=== PATIENT | female | born 1940 | race Caucasian/White ===

== ENCOUNTER → 2019-06-14 13:13 | Outpatient (BNVA) | payer MEDICARE, SELFPAY | PROVIDERS: Family Provider Nurse Practitioner Family; PCP Nurse Practitioner Family; Visit Provider Anesthesiology | DX: M54.41 Lumbago with sciatica, right side (principal); M54.42 Lumbago with sciatica, left side; M25.551 Pain in right hip; M25.561 Pain in right knee; Z79.891 Long term (current) use of opiate analgesic | CPT/HCPCS: 99214 ==

== ENCOUNTER → 2019-06-25 12:26 | Outpatient (BNVA) | payer MEDICARE, SELFPAY | PROVIDERS: Family Provider Nurse Practitioner Family; PCP Nurse Practitioner Family; Visit Provider Nurse Practitioner Family | DX: E03.9 Hypothyroidism, unspecified (principal); Z79.899 Other long term (current) drug therapy; E83.42 Hypomagnesemia; M54.41 Lumbago with sciatica, right side; M54.42 Lumbago with sciatica, left side; E78.2 Mixed hyperlipidemia; F41.9 Anxiety disorder, unspecified; I10 Essential (primary) hypertension; K21.9 Gastro-esophageal reflux disease without esophagitis; M79.604 Pain in right leg; J06.9 Acute upper respiratory infection, unspecified | CPT/HCPCS: 80053; 80061; 81001; 82306; 83036; 83735; 84443; 85025 ==

== ENCOUNTER 2019-06-28 13:29 | Outpatient (CLI) | payer MEDICARE, SELFPAY ==
--- NOTE | 2019-06-28 13:40 | XR_ITS ---
WS: [id number] XR lumbar spine 6V w f/e [id number] REASON FOR EXAM: back pain with right side sciatica FINDINGS: The disc spaces and vertebral bodies are normal. Normal flexion-extension views. Heavy arteriosclerotic changes of the aorta and iliac arteries. 5 functional lumbar vertebra No evidence of spondylolysis or spondylolisthesis. The lumbosacral angle was normal. Decreased bone density suggesting osteopenia.. XR/XR lumbar spine 6V w f/e 91929 IMPRESSION: Arteriosclerotic changes Osteopenia
--- NOTE | 2019-06-28 13:40 | XR_ITS ---
WS: [id number] XR knee RT 3V* [id number] REASON FOR EXAM: right knee pain FINDINGS: Loss of the lateral meniscal space with marked eburnation identified. The patella shows degenerated changes in its articulation with the femur. There is spurring off the p atella. There is patella tibial space is normal. There is spurring off the tibial plateau. XR/XR knee RT 3V* [id number] IMPRESSION: Advanced degenerative arthritis of the right knee.
== END 2019-06-28 13:30 | disposition home or self-care (01) ==
LOC: RAD 13:36
PROVIDERS: Family Provider Nurse Practitioner Family; PCP Nurse Practitioner Family; Visit Provider Nurse Practitioner Family
DX: M25.561 Pain in right knee (principal); M54.42 Lumbago with sciatica, left side; M54.41 Lumbago with sciatica, right side; M85.88 Other specified disorders of bone density and structure, other site; M17.11 Unilateral primary osteoarthritis, right knee
CPT/HCPCS: 72114; 73562

== ENCOUNTER → 2019-07-15 15:21 | Outpatient (BNVA) | payer MEDICARE, SELFPAY | PROVIDERS: Family Provider Nurse Practitioner Family; PCP Nurse Practitioner Family; Visit Provider Nurse Practitioner Family | DX: S63.8X2A Sprain of other part of left wrist and hand, initial encounter (principal); S86.911A Strain of unspecified muscle(s) and tendon(s) at lower leg level, right leg, initial encounter; S76.911A Strain of unspecified muscles, fascia and tendons at thigh level, right thigh, initial encounter; X58.XXXA Exposure to other specified factors, initial encounter | CPT/HCPCS: 73110; 73130; 73552; 73560; 73562 ==

== ENCOUNTER → 2019-07-18 10:26 | Outpatient (BNVA) | payer MEDICARE, SELFPAY | PROVIDERS: Family Provider Nurse Practitioner Family; PCP Nurse Practitioner Family; Visit Provider Urology | DX: N39.0 Urinary tract infection, site not specified (principal) | CPT/HCPCS: 81001 ==

== ENCOUNTER → 2019-08-06 12:20 | Outpatient (BNVA) | payer MEDICARE, SELFPAY | PROVIDERS: Family Provider Nurse Practitioner Family; PCP Nurse Practitioner Family; Visit Provider Anesthesiology | DX: Z76.89 Persons encountering health services in other specified circumstances (principal) ==

== ENCOUNTER 2019-09-02 11:14 | Outpatient (CLI) | payer MEDICARE, SELFPAY ==
--- NOTE | 2019-09-02 12:00 | CT_ITS ---
WS: [id number] CT LUMBAR SPINE TECHNIQUE: Noncontrast CT of the lumbar spine with coronal and sagittal reformatted images. CLINICAL INFORMATION: lumbar disc disease COMPARISON: None. DLP: 2063.[address] scans at [facility] use at least one of these dose optimization techniques: automat ed exposure control; mA and/or kV adjustment per patient size (includes targeted exams where dose is matched to clinical indication); or iterative reconstruction. FINDINGS: Minimal lumbar curve convex left. No acute appearing compression fractures. Disc bulging worse L4-5. No high-grade central canal stenosis. L1-L2: Normal. L2-L3: Mild annular bulging. Mild facet arthropathy. Spinal canal and foramen are patent. L3-L4: No significant disc bulging. Moderate facet arthropathy. Spinal canal and foramen are patent. L4-L5: Mild annular bulging. Moderate facet arthropathy. Spinal canal and foramen are patent L5-S1: Mild disc bulging with a tiny central disc osteophyte protrusion. Slight effacement of the nino tral thecal sac. Spinal canal and foramen are patent. Moderate facet arthropathy. Visualized pelvic bony structures: Normal. Paravertebral soft tissues: Normal. CT/CT lumbar spine wo con* [id number] IMPRESSION: 1. Minimal lumbar curve convex left. No acute compression fractures. 2. Mild annular bulging L4-5 with slight effacement of ventral thecal sac. Spi nal canal and foramen are patent. 3. Moderate facet arthropathy L4-L5 and L5-S1. 4. Tiny central disc protrusion L5-S1 without significant spinal canal or fora barbara narrowing.
== END 2019-09-02 11:15 | disposition home or self-care (01) ==
LOC: RADWPI 11:19
PROVIDERS: Family Provider Nurse Practitioner Family; PCP Nurse Practitioner Family; Visit Provider Family Medicine
DX: M51.9 Unspecified thoracic, thoracolumbar and lumbosacral intervertebral disc disorder (principal); M47.817 Spondylosis without myelopathy or radiculopathy, lumbosacral region; M51.17 Intervertebral disc disorders with radiculopathy, lumbosacral region
CPT/HCPCS: 72131

== ENCOUNTER 2019-09-24 11:45 | Outpatient (CLI) | payer MEDICARE, SELFPAY ==
--- NOTE | 2019-09-24 11:30 | XR_ITS ---
WS: [id number] LATERAL LUMBAR SPINE: 3 view. Lateral radiographs are performed in upright neutral, flexion and extension to the patient's toleranc e. HISTORY: Low back pain COMPARISON: 06/28/2019 Marked osteopenia. Posterior lumbar alignment is normal. With flexion and extension no instability is evident. Disc spaces are mildly narrowed throughout. No fracture. Extensive atherosclerosis abdominal aorta. XR/XR lumbar spine f/e only [id number] IMPRESSION: No lumbar spine instability.
== END 2019-09-24 11:46 | disposition home or self-care (01) ==
LOC: RADWPI 11:48
PROVIDERS: PCP Nurse Practitioner Family; Visit Provider Licensed Practical Nurse
DX: M54.5 Low back pain (principal)
CPT/HCPCS: 72120

== ENCOUNTER 2020-09-14 13:02 | Outpatient (CLI) | payer MEDICARE, SELFPAY ==
--- NOTE | 2020-09-14 13:16 | XR_ITS ---
WS: [id number] THORACIC SPINE TECHNIQUE: 3 views of the thoracic spine CLINICAL INFORMATION: W19.XXXA - Unspecified fall, initial encounter COMPARISON: None. FINDINGS: Mild thoracolumbar curve. Aortic calcification. Moderate thoracic kyphosis with ankylosis. Aortic ally cification. No acute appearing thoracic compression fractures. Ankylosis thoracic spine. Osteopenia. XR/XR thoracic spine 3V* [id number] IMPRESSION: 1. Moderate thoracic kyphosis with ankylosis. 2. No acute appearing thoracic compression fractures.
--- NOTE | 2020-09-14 13:16 | XR_ITS ---
WS: [id number] RIBS BILATERAL TECHNIQUE: 4 views bilateral ribs CLINICAL INFORMATION: W19.XXXA - Unspecified fall, initial encounter COMPARISON: July 01, 2017 FINDINGS: Patient is rotated. Moderate chronic emphysematous changes. Aortic calcification. Cardiomegaly. Basal atelectasis. Cholecystectomy clips. Mild thoracolumbar curve. Osteopenia. Chronic appearing marcy ateral rib fractures with callus formation. XR/XR ribs BI 3V* [id number] IMPRESSION: 1. Moderate chronic erythematous changes. Bibasilar atelectasis. 2. No focal pneumonia. 3. Cardiomegaly. 4. Chronic appearing bilateral rib fractures with callus formation.
--- NOTE | 2020-09-14 13:16 | XR_ITS ---
WS: [id number] LUMBAR SPINE TECHNIQUE: 3 views of the lumbar spine CLINICAL INFORMATION: W19.XXXA - Unspecified fall, initial encounter COMPARISON: None. FINDINGS: Osteopenia. Five [id number] lumbar vertebral bodies. Mild compression superior endplate L2 is new from September 06. Moderate facet arthropathy L5-S1. Aortic calcification. Vascular calcification. Pelvic phlebolit hs. XR/XR lumbar spine 2-3V* [id number] IMPRESSION: 1. Osteopenia. Mild lumbar curve. 2. Mild compression superior endplate L2 with loss of approximately 20% verteb ral body height. This is new since September 24, 2019
--- NOTE | 2020-09-14 13:16 | XR_ITS ---
WS: [id number] SACRUM TECHNIQUE: 3 views of the sacrum and coccyx CLINICAL INFORMATION: W19.XXXA - Unspecified fall, initial encounter COMPARISON: None. FINDINGS: Osteopenia. Pelvic phleboliths. Vascular calcification. Aortic calcification. Normal sacrococcygeal j unction. XR/XR coccyx 2V [id number] IMPRESSION: Osteopenia with normal sacrococcygeal junction. No visualized fractures.
== END 2020-09-14 13:03 | disposition home or self-care (01) ==
PROVIDERS: PCP Nurse Practitioner Family; Visit Provider Nurse Practitioner Family
DX: M53.3 Sacrococcygeal disorders, not elsewhere classified (principal); R07.81 Pleurodynia; M54.6 Pain in thoracic spine; M54.5 Low back pain; M40.294 Other kyphosis, thoracic region; M43.24 Fusion of spine, thoracic region; J98.11 Atelectasis; I51.7 Cardiomegaly; S22.43XA Multiple fractures of ribs, bilateral, initial encounter for closed fracture; S32.029A Unspecified fracture of second lumbar vertebra, initial encounter for closed fracture; W19.XXXA Unspecified fall, initial encounter; M85.88 Other specified disorders of bone density and structure, other site
CPT/HCPCS: 71110; 72072; 72100; 72220

== ENCOUNTER → 2020-12-23 11:42 | Outpatient (BNVA) | payer MEDICARE, SELFPAY | PROVIDERS: PCP Nurse Practitioner Family; Visit Provider Nurse Practitioner Family | DX: R32 Unspecified urinary incontinence (principal); L03.115 Cellulitis of right lower limb; I50.32 Chronic diastolic (congestive) heart failure | CPT/HCPCS: 80048; 81003; 83880 ==

== ENCOUNTER → 2021-02-18 11:51 | Outpatient (BNVA) | payer MEDICARE, SELFPAY | PROVIDERS: PCP Nurse Practitioner Family; Visit Provider Nurse Practitioner Family | DX: L03.115 Cellulitis of right lower limb (principal); I10 Essential (primary) hypertension | CPT/HCPCS: 81003 ==

== ENCOUNTER → 2021-02-24 11:07 | Outpatient (BNVA) | payer MEDICARE, SELFPAY | PROVIDERS: PCP Nurse Practitioner Family; Visit Provider Nurse Practitioner Family | DX: F41.9 Anxiety disorder, unspecified (principal); R60.0 Localized edema; E03.9 Hypothyroidism, unspecified; K21.9 Gastro-esophageal reflux disease without esophagitis; I10 Essential (primary) hypertension; L03.115 Cellulitis of right lower limb | CPT/HCPCS: 83880 ==

== ENCOUNTER 2021-03-09 13:03 | Outpatient (CLI) | payer MEDICARE, SELFPAY | END 2021-03-09 13:04 | disposition home or self-care (01) | LOC: WOUND 13:05 | PROVIDERS: PCP Nurse Practitioner Family; Visit Provider Thoracic Surgery (Cardiothoracic Vascular Surgery) | DX: L03.116 Cellulitis of left lower limb (principal); L03.115 Cellulitis of right lower limb; I87.2 Venous insufficiency (chronic) (peripheral) | CPT/HCPCS: G0463 ==

== ENCOUNTER 2021-04-23 14:36 | Outpatient (CLI) | payer MEDICARE, SELFPAY ==
--- NOTE | 2021-04-23 14:43 | USCV_ITS ---
Glenda Ybarra Age: 80 Gender: F : 1940 Exam Date: 04/23/2021 14:57 Ordering Phys: Tono Kelley MD ([place]) [email or web address] [place] Technologist: MANJIT [place] [facility] [place]: HISTORY: PROCEDURES: FINDINGS: DUE TO FRAGILE STATE HAVE CONCERNS FOR ABLATION CONCLUSIONS 1 no evidence of DVT in the above-mentioned identifiable veins. 2. On the right side, significant reflux of greater than 500 ms were noted throughout the greater saphenous and small saphenous vein segments, sparing the saphenofemoral junction. The venous segments were of good caliber and a greater than 1 cm deep from the surface. 3. On the left side significant venous reflux of greater than 500 ms were noted throughout the greater saphenous vein segments including the saphenofemoral junction. No significant reflux was noted at the small saphenous vein segments. The greater saphenous vein segments were of good caliber and greater than 1 cm deep from the surface, except the greater saphenous vein segment just distal to the saphenofemoral junction. No similar previous studies are available for comparison. Clinical correlation is recommended, while deciding on the ablation Dr Coty Snyder MD [facility] (Electronically Signed) Final Date: 01 May 2021 16:17 S
== END 2021-04-23 14:37 | disposition home or self-care (01) ==
LOC: RAD 14:40
PROVIDERS: PCP Nurse Practitioner Family; Visit Provider Thoracic Surgery (Cardiothoracic Vascular Surgery)
DX: I87.2 Venous insufficiency (chronic) (peripheral) (principal)
CPT/HCPCS: 93970

== ENCOUNTER → 2021-07-22 14:51 | Outpatient (BNVA) | payer MEDICARE, SELFPAY | PROVIDERS: PCP Nurse Practitioner Family; Visit Provider Internal Medicine | DX: I11.0 Hypertensive heart disease with heart failure (principal); I50.32 Chronic diastolic (congestive) heart failure; Z01.818 Encounter for other preprocedural examination; E78.2 Mixed hyperlipidemia | CPT/HCPCS: 99214 ==

== ENCOUNTER → 2021-10-12 13:30 | Outpatient (BNVA) | payer MEDICARE, SELFPAY | PROVIDERS: PCP Nurse Practitioner Family; Visit Provider Nurse Practitioner | DX: R05.9 Cough, unspecified (principal); J18.9 Pneumonia, unspecified organism | CPT/HCPCS: 85025 ==

== ENCOUNTER → 2021-11-01 10:47 | Outpatient (BNVA) | payer MEDICARE, SELFPAY | PROVIDERS: PCP Nurse Practitioner Family; Visit Provider Nurse Practitioner Family | DX: N39.0 Urinary tract infection, site not specified (principal); R32 Unspecified urinary incontinence | CPT/HCPCS: 81003; 99213 ==

== ENCOUNTER 2022-02-17 15:11 | Emergency (ER) | payer MEDICARE, SELFPAY ==
--- NOTE | 2022-02-17 | XRR_ITS ---
[facility] Final Radiology Report Call: [phone] Name: ERLIN MIXON Age: 81Years F Date: 02/17/2022 SSN: -- : 1940 Study: XR CHEST 1 VIEW Requesting Physician: SUZETTE GILLIAM Images: 1 Provided Clinical History: dyspnea PROCEDURE INFORMATION: Exam: XR Chest Exam date and time: 02/17/2022 4:18 PM Age: 81 years old Clinical indication: Dyspnea TECHNIQUE: Imaging protocol: Radiologic exam of the chest. Views: 1 view. COMPARISON: CR XR ribs BI 3V* [id number] 09/14/2020 1:56 PM FINDINGS: Lungs: Left perihilar and bibasilar opacities may reflect atelectasis, edema or pneumonitis. Pleural spaces: There are bilateral pleural effusions. Heart/Mediastinum: Heart size within upper limits of normal. Bones/joints: Unremarkable. IMPRESSION: 1. Left perihilar and bibasilar opacities may reflect atelectasis, edema or pneumonitis. 2. Bilateral pleural effusions. Thank you for allowing us to participate in the care of your patient. Dictated and Authenticated by: Janet Rouse MD 02/17/2022 5:26 PM Central Time ([place] & [place]) [facility]ITALBuffy
[2022-02-17 15:22] VITALS: BP 152/77; PULSE 72; RESP 22; TEMP 36.5; O2SAT 93; BMI 18.8
--- NOTE | 2022-02-17 15:54 | ED_ITS ---
HPI - General Adult General: Chief complaint: Shortness of Breath/Dyspnea Stated complaint: sob Time Seen by Provider: 02/17/22 15:34 History of Present Illness: Patient is a 81-year-old female with a history of chronic left breast lesion presenting to the emergency room for concerns of dyspnea and chest pain. Patient tells me that for the last month she has had an ongoing cough and she was diagnosed with pneumonia twice. Patient completed 2 course of antibiotics including z-paks and augmentin and continues to have persistent cough and dyspnea. Over the last week, patient also reports chest pain. Patient denies any fever/chills, runny nose, sore throat, nasal congestion, abdominal pain, diarrhea, melena hematochezia or complaints. Of note, patient has a chronic left breast lesion that she first noticed over 10 years ago. Patient has never seen a provider for this breast lesion. Onset:1 month ago Duration:1 month Location:home Severity:moderate Associated symptoms: Reports dyspnea; Deny chest pain, nausea, palpitations or vomiting Review of Systems Const: Denies: fever(s) or chills Eyes: Denies: change in vision ENMT: Denies: mouth pain Card: Denies: chest pain or palpitations Resp: Reports: dyspnea and non-productive cough GI: Denies: abdominal pain, nausea, vomiting or diarrhea : Denies: dysuria Musc: Denies: extremity pain Skin/Breast: Reports: other (+chronic L breast ulcerated wound) Neuro: Denies: weakness in extremities Psych: Reports: other (Normal mood) Skyler/Lymph: Denies: easy bruising PFSH ED PFSH: Medical History Acute pain of right hip Anemia Anxiety Arthralgia of knee, right Bilateral low back pain with bilateral sciatica Bilateral lower extremity edema Cellulitis of right lower leg Chronic kidney disease (CKD) Congestive heart failure with left ventricular diastolic dysfunction Encounter for long-term use of opiate analgesic Essential hypertension, benign Fall at home Fall in home Generalized weakness GERD (gastroesophageal reflux disease) Hypomagnesemia Hypothyroid 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 radiculopathy due to degenerative joint disease of spine Medication management Mixed hyperlipidemia Muscle spasm Osteoarthritis of right knee Recurrent UTI Urinary incontinence Venous insufficiency of both lower extremities Vitamin D deficiency Surgical History History of laparoscopic appendectomy Hx of abdominal hysterectomy Hx of cholecystectomy Family History Mother CAD (coronary artery disease) Father Stroke Brother CAD (coronary artery disease) Cancer Sister CAD (coronary artery disease) Cancer Social History Smoking and tobacco status: never smoked Alcohol intake: never Household members: spouse Marital status: Current occupational status: retired History of recent travel: No Physical Exam Const: COMMON NORMALS: alert HENMT: COMMON NORMALS: atraumatic HEAD & SCALP: atraumatic MOUTH: moist mucous membranes not abnormal Eye: COMMON NORMALS: EOMs intact bilaterally and conjunctivae normal CONJUNCTIVA: Yes conjunctivae normal Neck/C-Spine: COMMON NORMALS: full ROM and supple Chest: OTHER: +L breast 5cm ulcerated granulating lesion Resp: COMMON NORMALS: normal respiratory effort and clear to auscultation bilaterally AUSCULTATION: clear to auscultation bilaterally OTHER: + Mild decreased breath sounds bilaterally in the bases Cardio: COMMON NORMALS: regular rate RATE: regular rate GI: COMMON NORMALS: Soft to palpation and non-tender PALPATION: Yes Soft to palpation OTHER: No focal TTP. NO guarding rebound, guarding, rigidity. No CVA tenderness to percussion. Neg Dahl/Neg McBurney's point tenderness, no suprabupic tenderness to palpation. Extremity: COMMON NORMALS: full ROM Neuro: SENSORIUM/ORIENTATION: Yes alert MOTOR EXAM: No Abnormal motor strength present and Other motor observations present (no focal motor deficits) Psych: COMMON NORMALS: speech normal SPEECH: Yes normal speech MOOD & AFFECT: Yes euthymic mood Skin: NARRATIVE SKIN EXAM: +L breast 5cm ulcerated granulating lesion Course Vital Signs: Vital signs: Vital Signs Temperature 97.7 F 02/17/22 15:22 Pulse Rate 73 02/17/22 17:00 Respiratory Rate 15 02/17/22 17:00 Blood Pressure 157/50 02/17/22 17:00 Pulse Oximetry 91 02/17/22 17:00 Oxygen Delivery Me thod 02/17/22 17:00 [facility] - General Adult Medical Decision Making 81-year-old female with a history of chronic left breast lesion presenting to emergency room with exertional dyspnea, cough, and chest pain for the last month now worsening. On exam, patient is noted have decreased breath sounds bilaterally in the bases. On skin exam, patient is noted to have ulcerated granulating lesion of the left breast. Lab work-up showed white count 6.4. Troponin x2 with delta less than 5. Sodium 131. Potassium 3.3. EKG is nonischemic. Given concerns for possible history of breast lesion, CTA was ordered. Patient is negative for PE. Patient was found to have multiple sclerotic bone lesions visible as well as metastatic changes to the lungs with bilateral pleural effusion. Discussed these findings extensively with patient. Patient is a copy of the CT report and is instructed to follow up with specialists below. At the present time, given normal troponin and EKG, do not suspect patient's symptoms and presentations is likely unstable angina or ACS today. It is likely the metastatic nature of her disease is causing patient to cough, shortness of breath and chest pain. I have given patient follow up with our director case to be seen by our outpatient oncology for new diagnosis of metastatic breast cancer. Patient aware of a call from our director case to schedule for appointment(s) and verbalizes understanding of the importance of following up. I have given patient follow up with our director case to be seen by our outpatient pulmonology for management of . Patient aware of a call from our director case to schedule for appointment(s) and verbalizes understanding of the im portance of following up. I have given patient follow up with our director case to be seen by our o utpatient with a new PCP per request of patient. Patient aware of a call from our director case to schedule for appointment(s) and verbalizes understanding of the importance of following up. Rx lasix for pleural effusion b/l Disposition: Discharge. Patient counseled regarding diagnostic impression, treatment plan. Patient given ED strict return precautions to return for continuation, worsening, or development of new symptoms. Instructed to f/u w/ PCP/Oncology/Pulmology regarding symptoms today. Patient verbalized understanding. Lab Data : 02/17/22 15:59 02/17/22 15:59 Radiology Impressions Chest CTA 02/17/22 16:17 IMPRESSION: 1. Large left anterior breast mass, with associated thickening and nodularity in the adjacent skin and superficial fat of the left lateral chest wall. Correlate with clinical history, with tissue diagnosis if not already performed. 2. Mediastinal and bilateral hilar adenopathy, nonspecific but likely metastatic. 3. Numerous rounded parenchymal nodules, as above, consistent with metastatic disease. 4. Patchy and nodular density in the left upper lobe which likely reflects metastatic disease and associated atelectasis. Pneumonitis is not excluded. 5. Sclerotic lesion right lateral 6th rib, suspicious for metastatic focus. 6. Moderate to large bilateral pleural effusions, with compressive atelectasis in the dependent lungs bilaterally. 7. Cirrhotic appearance of the liver. 8. Splenomegaly. Laboratory Results WBC 6.4 10^3/uL (4.0-10.0) 02/17/22 15:59 RBC 4.63 10^6/uL (4.1-5.3) 02/17/22 15:59 Hgb 14.8 g/dL (11.5-15.3) 02/17/22 15:59 Hct 42.6 % (37.0-47.0) 02/17/22 15:59 MCV 92.0 fl (81-99) 02/17/22 15:59 MCH 32.0 pg (28.0-34.0) 02/17/22 15:59 MCHC 34.7 g/dL (30.0-36.0) 02/17/22 15:59 RDW 13.6 % (12.1-15.1) 02/17/22 15:59 Plt Count 138 10^3/cmm (130-400) 02/17/22 15:59 MPV 9.8 fL (7.4-10.4) 02/17/22 15:59 Neut % (Auto) 75.6 % 02/17/22 15:59 Lymph % (Auto) 12.8 % 02/17/22 15:59 [place] % (Auto) 9.2 % 02/17/22 15:59 Eos % (Auto) 1.6 % 02/17/22 15:59 Baso % (Auto) 0.5 % 02/17/22 15:59 Neut # (Auto) 4.86 10^3/uL (1.8-7.7) 02/17/22 15:59 Lymph # (Auto) 0.8 10^3/uL (0.8-4.8) 02/17/22 15:59 [place] # (Auto) 0.6 10^3/uL (0.2-0.9) 02/17/22 15:59 Eos # (Auto) 0.1 10^3/uL (0.0-0.8) 02/17/22 15:59 Baso # (Auto) 0.0 10^3/uL (0.0-0.1) 02/17/22 15:59 Nucleated RBC % (auto) 0 % 02/17/22 15:59 Nucleated RBCs # 0.0 /100WBC 02/17/22 15:59 Sodium 131 mmol/L (136-145) L 02/17/22 15:59 Potassium 3.3 mmol/L (3.5-5.1) L 02/17/22 15:59 Chloride 92 mmol/L (98-107) L 02/17/22 15:59 Carbon Dioxide 28 mmol/L (22-29) 02/17/22 15:59 Anion Gap 14.3 (5-19) 02/17/22 15:59 BUN 11 mg/dL (8-23) 02/17/22 15:59 Creatinine 0.5 mg/dL (0.5-0.9) 02/17/22 15:59 GFR Calculation Not Reportable 02/17/22 15:59 Glucose 104 mg/dL (65-115) 02/17/22 15:59 Calculated Osmolality 272 mOsm/kg (285-295) L 02/17/22 15:59 Calcium 9.7 mg/dL (8.5-10.5) 02/17/22 15:59 Troponin T Baseline 17 ng/L (0-10) H 02/17/22 15:59 Troponin T 120 Minute 18.04 ng/L (0-10) H 02/17/22 17:53 Delta Troponin T 1.04 ABS# (0-10) 02/17/22 17:53 C-Reactive Protein 3.5 mg/L (0.0-4.9) 02/17/22 15:59 NT-Pro-B Natriuret Pep 648 pg/mL (0-450) H 02/17/22 15:59 Procalcitonin 0.03 ng/mL (0-0.5) 02/17/22 15:59 Imaging Data Other Imaging: Radiologist's impression: [facility] [address] [place] [address] CT Scan Report Signed Patient: Glenda Ybarra Unit #: [id number] : 1940 Age/Sex: 81 / F ADM Date: 02/17/22 Loc: ER Room/Bed: Attending Dr: Ordering Provider/Ordering MD: Sunni Perez MD Date of Service: 02/17/22 Procedure(s): CT angio chest PE protcl [id number] Accession Number(s): [id number] Report Number: [id number] PROCEDURE INFORMATION: Exam: CTA Chest With Contrast Exam date and time: 02/17/2022 5:30 PM Age: 81 years old Clinical indication: Abnormal findings; Abnormal radiologic exam of lung or chest; Additional info: L sided chest lesion TECHNIQUE: Imaging protocol: Computed tomographic angiography of the chest with contrast. 3D rendering (Not supervised by radiologist): MIP and/or 3D reconstructed images were created by the technologist. Radiation optimization: All CT scans at this facility use at least one of these dose optimization techniques: automated exposure control; mA and/or kV adjustment per patient size (includes targeted exams where dose is matched to clinical indication); or iterative reconstruction. Contrast material: OMNIPAQUE 350; Contrast volume: 95 ml; Contrast route: INTRAVENOUS (IV);? COMPARISON: CR XR chest 2V* [id number] 02/17/2022 4:18 PM RADIATION DOSE METRICS: Total DLP (mGy-cm): 323.66 FINDINGS: Pulmonary arteries: No pulmonary emboli.? Mediastinal lymphadenopathy exhibits extrinsic compression on multiple pulmonary arterial branches.? Aorta: Unremarkable. No aortic aneurysm. No aortic dissection. Lungs: There is compressive atelectasis in the dependent lungs bilaterally. Multiple parenchymal nodules are seen in both lungs, largest rounded nodule in the right upper lobe measuring 12 mm, consistent with metastatic disease. There is a patchy and nodular density in the left upper lobe which likely reflects metastatic disease and associated atelectasis. Pneumonitis is not excluded. Pleural spaces: Moderate to large bilateral pleural effusions are noted. Heart:? Coronary arterial calcifications. No significant pericardial effusion.? There is borderline cardiomegaly. Lymph nodes: Mediastinal and bilateral hilar adenopathy is noted. Liver: Cirrhotic appearance of the liver. Spleen: Splenomegaly. Bones/joints: There is a sclerotic appearance of the right lateral 6th rib which is suspicious for osseous metastatic lesion. No other suspected bone metastases are identified. Soft tissues: There is an irregularly lobular left anterior chest wall lesion which measures approximately 9.2 x 4.4 cm in the axial plane, is extending along the adjacent skin, causing skin thickening and nodularity, the lesion inseparable from the anterior chest wall musculature. Presumed breast neoplasm. Correlate with clinical history, with tissue diagnosis if not already performed. Nodularity is seen in the skin and superficial fat of the left lateral and posterolateral chest wall, as well. CT/CT angio chest PE protcl [id number] IMPRESSION: 1. Large left anterior breast mass, with associated thickening and nodularity in the adjacent skin and superficial fat of the left lateral chest wall. Correlate with clinical history, with tissue diagnosis if not already performed. 2. Mediastinal and bilateral hilar adenopathy, nonspecific but likely metastatic. 3. Numerous rounded parenchymal nodules, as above, consistent with metastatic disease. 4. Patchy and nodular density in the left upper lobe which likely reflects metastatic disease and associated atelectasis. Pneumonitis is not excluded. 5. Sclerotic lesion right lateral 6th rib, suspicious for metastatic focus. 6. Moderate to large bilateral pleural effusions, with compressive atelectasis in the dependent lungs bilaterally. 7. Cirrhotic appearance of the liver. 8. Splenomegaly. ? Dictated By: Janet Rouse MD Signed By: Janet Rouse MD Signed Date/Time: 02/17/221826 DD/ 29 Discharge Plan Discharge Patient Disposition: Home Clinical Impression: Dyspnea, Metastatic cancer, Pleural effusion Condition: Stable Prescriptions: New Lasix 20 mg tablet 20 mg PO DAILY 20 Days Qty: 20 0RF No Action (DME) light weight wheelchair See Rx Instructions .Route .MEDSUPPLY Qty: 1 0RF Rx Instructions: As directed amoxicillin-pot clavulanate 875-125 mg tablet 1 tab PO BID 7 Days Qty: 14 0RF Rx Instructions: RX FILLED 02/14/22 7D/S multivitamin Tablet 1 tab PO QAM Senna-S 8.6-50 mg Tablet 1 tab PO BID Tylenol Ex Str Rapid Release 500 mg Tablet 500 mg PO DAILY@02 Vitamin C 500 mg Tablet 500 mg PO DAILY PRN (Reason: UNKNOWN) torsemide 20 mg tablet 20 mg PO QAM hydrocodone-acetaminophen 10-325 mg tablet 0.5 tab PO Q6H omeprazole 40 mg capsule,delayed release(DR/EC) 40 mg PO QAM alprazolam 0.5 mg tablet 0.25 mg PO BID potassium chloride 20 mEq tablet,ER particles/crystals 20 meq PO QAM levothyroxine 50 mcg tablet 50 mcg PO QAM simvastatin 20 mg tablet 20 mg PO BEDTIME triamterene-hydrochlorothiazid 37.5-25 mg tablet 1 tab PO BEDTIME Mag 64 64 mg tablet,delayed release (DR/EC) 64 mg PO BID Discharge Orders: Discharge ED (Routine); Ordered 02/17/22 Ordered By: Sunni Perez Referrals: NOT ON FILE,DOCTOR [Primary Care Provider] - Discharge Diet: Advance as tolerated Discharge Activity: Increase activity as tolerated Patient Instructions: Chest Pain (ED), Dyspnea (ED) Activity Restrictions/Additional Instructions: Come back to the emergency room if your chest pain worsens, have any fever or chills, worsening shortness of breath, worsening exertional lightheadedness, or any new or concerning complaints. Our director case will have you follow-up with our car installations supervisor, primary care provider and oncologist in the next few days. You would be expected to have a phone call with our director case who will put you on the schedule. You can expect a call from us in the next 2-3 days. If you don't hear from us, call us back in the emergency room at [phone]. Here's a copy of your CT report: [address] [place] [address] CT Scan Report Signed Patient: Glenda Ybarra Unit #: [id number] : 1940 Age/Sex: 81 / F ADM Date: 02/17/22 Loc: ER Room/Bed: Attending Dr: Ordering Provider/Ordering MD: Sunni Perez MD Date of Service: 02/17/22 Procedure(s): CT angio chest PE protcl [id number] Accession Number(s): [id number] Report Number: [id number] PROCEDURE INFORMATION: Exam: CTA Chest With Contrast Exam date and time: 02/17/2022 5:30 PM Age: 81 years old Clinical indication: Abnormal findings; Abnormal radiologic exam of lung or chest; Additional info: L sided chest lesion TECHNIQUE: Imaging protocol: Computed tomographic angiography of the chest with contrast. 3D rendering (Not supervised by radiologist): MIP and/or 3D reconstructed images were created by the technologist. Radiation optimization: All CT scans at this facility use at least one of these dose optimization techniques: automated exposure control; mA and/or kV adjustment per patient size (includes targeted exams where dose is matched to clinical indication); or iterative reconstruction. Contrast material: OMNIPAQUE 350; Contrast volume: 95 ml; Contrast route: INTRAVENOUS (IV);? COMPARISON: CR XR chest 2V* [id number] 02/17/2022 4:18 PM RADIATION DOSE METRICS: Total DLP (mGy-cm): 323.66 FINDINGS: Pulmonary arteries: No pulmonary emboli.? Mediastinal lymphadenopathy exhibits extrinsic compression on multiple pulmonary arterial branches.? Aorta: Unremarkable. No aortic aneurysm. No aortic dissection. Lungs: There is compressive atelectasis in the dependent lungs bilaterally. Multiple parenchymal nodules are seen in both lungs, largest rounded nodule in the right upper lobe measuring 12 mm, consistent with metastatic disease. There is a patchy and nodular density in the left upper lobe which likely reflects metastatic disease and associated atelectasis. Pneumonitis is not excluded. Pleural spaces: Moderate to large bilateral pleural effusions are noted. Heart:? Coronary arterial calcifications. No significant pericardial effusion.? There is borderline cardiomegaly. Lymph nodes: Mediastinal and bilateral hilar adenopathy is noted. Liver: Cirrhotic appearance of the liver. Spleen: Splenomegaly. Bones/joints: There is a sclerotic appearance of the right lateral 6th rib which is suspicious for osseous metastatic lesion. No other suspected bone metastases are identified. Soft tissues: There is an irregularly lobular left anterior chest wall lesion which measures approximately 9.2 x 4.4 cm in the axial plane, is extending along the adjacent skin, causing skin thickening and nodularity, the lesion inseparable from the anterior chest wall musculature. Presumed breast neoplasm. Correlate with clinical history, with tissue diagnosis if not already performed. Nodularity is seen in the skin and superficial fat of the left lateral and posterolateral chest wall, as well. CT/CT angio chest PE protcl [id number] IMPRESSION: 1. Large left anterior breast mass, with associated thickening and nodularity in the adjacent skin and superficial fat of the left lateral chest wall. Correlate with clinical history, with tissue diagnosis if not already performed. 2. Mediastinal and bilateral hilar adenopathy, nonspecific but likely metastatic. 3. Numerous rounded parenchymal nodules, as above, consistent with metastatic disease. 4. Patchy and nodular density in the left upper lobe which likely reflects metastatic disease and associated atelectasis. Pneumonitis is not excluded. 5. Sclerotic lesion right lateral 6th rib, suspicious for metastatic focus. 6. Moderate to large bilateral pleural effusions, with compressive atelectasis in the dependent lungs bilaterally. 7. Cirrhotic appearance of the liver. 8. Splenomegaly. ? Dictated By: Janet Rouse MD Signed By: Janet Rouse MD Signed Date/Time: 02/17/22 1827 DD/ 1730 Coding Level of Care Code ED Assistant Signal Maintainer for Chg Fwd Exam Comprehensive
[2022-02-17 16:05] VITALS: BP 132/70; PULSE 72; RESP 18; O2SAT 92
--- NOTE | 2022-02-17 16:07 | PC.NURSE ---
Patient has a large abscess to left breast, she has not reported this to her physician, states it has been there a long time, states it drains on its own, states it continues to get better.
[2022-02-17 16:10] LABS: Basophils % 0.5 %; Eosinophils # 0.1 10^3/uL (0.0-0.8); Eosinophils % 1.6 %; Hematocrit 42.6 % (37.0-47.0); Hemoglobin 14.8 g/dL (11.5-15.3); Lymphocytes # 0.8 10^3/uL (0.8-4.8); Lymphocytes % 12.8 %; Mean Corpuscular HGB Conc 34.7 g/dL (30.0-36.0); Mean Platelet Volume 9.8 fL (7.4-10.4); Monocytes # 0.6 10^3/uL (0.2-0.9); Monocytes % 9.2 %; Neutrophils # 4.86 10^3/uL (1.8-7.7); Neutrophils % 75.6 %; Nucleated Red Blood Cells % 0 %; Platelet Count 138 10^3/cmm (130-400); Red Blood Count 4.63 10^6/uL (4.1-5.3); Red Cell Distribution Width 13.6 % (12.1-15.1); White Blood Count 6.4 10^3/uL (4.0-10.0)
--- NOTE | 2022-02-17 16:10 | PC.NURSE ---
Left breast abscess has been there about 12 years and has increased in size in the last two years. Abscess is open and size of left breast.
--- NOTE | 2022-02-17 16:17 | CTR_ITS ---
PROCEDURE INFORMATION: Exam: CTA Chest With Contrast Exam date and time: 02/17/2022 5:30 PM Age: 81 years old Clinical indication: Abnormal findings; Abnormal radiologic exam of lung or chest; Additional info: L sided chest lesion TECHNIQUE: Imaging protocol: Computed tomographic angiography of the chest with contrast. 3D rendering (Not supervised by radiologist): MIP and/or 3D reconstructed images were created by the technologist. Radiation optimization: All CT scans at this facility use at least one of these dose optimization techniques: automated exposure control; mA and/or kV adjustment per patient size (includes targeted exams where dose is matched to clinical indication); or iterative reconstruction. Contrast material: OMNIPAQUE 350; Contrast volume: 95 ml; Contrast route: INTRAVENOUS (IV); COMPARISON: CR XR chest 2V* [id number] 02/17/2022 4:18 PM RADIATION DOSE METRICS: Total DLP (mGy-cm): 323.66 FINDINGS: Pulmonary arteries: No pulmonary emboli. Mediastinal lymphadenopathy exhibits extrinsic compression on multiple pulmonary arterial branches. Aorta: Unremarkable. No aortic aneurysm. No aortic dissection. Lungs: There is compressive atelectasis in the dependent lungs bilaterally. Multiple parenchymal nodules are seen in both lungs, largest rounded nodule in the right upper lobe measuring 12 mm, consistent with metastatic disease. There is a patchy and nodular density in the left upper lobe which likely reflects metastatic disease and associated atelectasis. Pneumonitis is not excluded. Pleural spaces: Moderate to large bilateral pleural effusions are noted. Heart: Coronary arterial calcifications. No significant pericardial effusion. There is borderline cardiomegaly. Lymph nodes: Mediastinal and bilateral hilar adenopathy is noted. Liver: Cirrhotic appearance of the liver. Spleen: Splenomegaly. Bones/joints: There is a sclerotic appearance of the right lateral 6th rib which is suspicious for osseous metastatic lesion. No other suspected bone metastases are identified. Soft tissues: There is an irregularly lobular left anterior chest wall lesion which measures approximately 9.2 x 4.4 cm in the axial plane, is extending along the adjacent skin, causing skin thickening and nodularity, the lesion inseparable from the anterior chest wall musculature. Presumed breast neoplasm. Correlate with clinical history, with tissue diagnosis if not already performed. Nodularity is seen in the skin and superficial fat of the left lateral and posterolateral chest wall, as well. CT/CT angio chest PE protcl [id number] IMPRESSION: 1. Large left anterior breast mass, with associated thickening and nodularity in the adjacent skin and superficial fat of the left lateral chest wall. Correlate with clinical history, with tissue diagnosis if not already performed. 2. Mediastinal and bilateral hilar adenopathy, nonspecific but likely metastatic. 3. Numerous rounded parenchymal nodules, as above, consistent with metastatic disease. 4. Patchy and nodular density in the left upper lobe which likely reflects metastatic disease and associated atelectasis. Pneumonitis is not excluded. 5. Sclerotic lesion right lateral 6th rib, suspicious for metastatic focus. 6. Moderate to large bilateral pleural effusions, with compressive atelectasis in the dependent lungs bilaterally. 7. Cirrhotic appearance of the liver. 8. Splenomegaly.
[2022-02-17 16:26] LABS: Troponin(5th) Baseline 17 ng/L (0-10)
[2022-02-17] MEDS: ipratropium-albuterol 3 mL Neb INHALATION ×3 (16:31→16:40)
[2022-02-17 16:35] VITALS: PULSE 68; RESP 16; O2SAT 92
[2022-02-17 16:37] LABS: NT Pro B Type Natriuretic Pept 648 pg/mL (0-450); Procalcitonin 0.03 ng/mL (0-0.5)
[2022-02-17 16:45] VITALS: PULSE 70
[2022-02-17 16:48] LABS: Blood Urea Nitrogen 11 mg/dL (8-23); C Reactive Protein 3.5 mg/L (0.0-4.9); Calcium 9.7 mg/dL (8.5-10.5); Carbon Dioxide 28 mmol/L (22-29); Chloride 92 mmol/L (98-107); Glucose 104 mg/dL (65-115); Osmolality Calculated 272 mOsm/kg (285-295); Sodium 131 mmol/L (136-145)
[2022-02-17 16:51] LABS: Anion Gap 14.3 (5-19); Potassium 3.3 mmol/L (3.5-5.1)
[2022-02-17 17:00] VITALS: BP 157/50; PULSE 73; RESP 15; O2SAT 91
[2022-02-17] MEDS: iohexol 350 mg/mL 100 mL Btl IV (17:32)
--- NOTE | 2022-02-17 17:35 | ECG_ITS ---
[facility] Test Date: 2022-02-17 Pat Name: Glenda Ybarra Department: Room: Gender: Female Nutrition Services Aide: : 1940 Requested By: Sunni Perez Order Number: [id number] Reading MD: Sonja Thomas M.D. Measurements Intervals Central Rate: 80 P: 43 DE: 156 QRS: 53 QRSD: 93 T: 47 QT: 407 QTc: 469 Interpretive Statements SINUS RHYTHM Compared to ECG 02/17/2022 16:09:10 No significant changes Electronically Signed On 02-17-2022 21:07:01 CDT by Sonja Thomas M.D. [id number]
[2022-02-17 18:44] LABS: Troponin 5 2HR 18.04 ng/L (0-10); Troponin 5 2HR Delta 1.04 ABS# (0-10)
[2022-02-17 19:16] VITALS: BP 131/65; PULSE 85; RESP 16; O2SAT 95
--- NOTE | 2022-02-17 21:35 | ECG_ITS ---
[facility] Test Date: 2022-02-17 Pat Name: Glenda Ybarra Department: Room: Gender: Female Catering Server: : 1940 Requested By: Sunni Perez Order Number: [id number] Neil MD: Sonja Thomas M.D. Measurements Intervals [place] Rate: 70 P: 45 MD: 163 QRS: 58 QRSD: 92 T: 55 QT: 406 QTc: 439 Interpretive Statements SINUS RHYTHM No previous ECG available for comparison Electronically Signed On 02-17-2022 21:07:42 CDT by Sonja Thomas M.D. [email or web address]
--- NOTE | 2022-02-18 10:46 | DCPLANNER ---
Addendum entered by Latonya Wing 05/06/22 14:31: Patient had a follow up appointment scheduled with [facility] - pulmonlogy - patient did attend appointment. Patient had a follow up appointment scheduled at the [facility] - patient did attend appointment. Addendum entered by Latonya Wing 02/23/22 12:24: Patient has a follow up appointment scheduled for February at 12:[address] Casas with [facility]. Clinic will call patient with appointment information. Original Note: qc manager had message to schedule a follow up appointment for patient with pulmonology, primary care and oncology. qc manager sent patients information at the front office at [facility], patients information will be printed and reviewed. Clinic will call patient with appointment information. qc manager cannot refer patient to oncology, due to not having a biopsy completed and no diagnosis. qc manager did refer patient to her primary care, at [facility], patient has a follow up appointment scheduled for Monday, February 21, 2022 at 11:00 with Jaylin Pollack. Clinic will call patient with appointment information.
== END 2022-02-17 19:18 | disposition home or self-care (01) ==
PROVIDERS: Emergency Provider Emergency Medicine
DX: R06.00 Dyspnea, unspecified (principal); J90 Pleural effusion, not elsewhere classified; C50.919 Malignant neoplasm of unspecified site of unspecified female breast; C79.9 Secondary malignant neoplasm of unspecified site; I11.0 Hypertensive heart disease with heart failure; I50.9 Heart failure, unspecified; E78.2 Mixed hyperlipidemia
CPT/HCPCS: 36415; 71045; 71275; 80048; 83880; 84145; 84484; 85025; 86140; 93005; 94640; 99285; Q9967

== ENCOUNTER → 2022-02-21 14:27 | Outpatient (BNVA) | payer MEDICARE, SELFPAY | PROVIDERS: Visit Provider Nurse Practitioner | DX: C79.9 Secondary malignant neoplasm of unspecified site (principal); J90 Pleural effusion, not elsewhere classified; I10 Essential (primary) hypertension | CPT/HCPCS: 83880; 85025 ==

== ENCOUNTER 2022-02-24 14:08 | Day surgery (SDC) | payer MEDICARE, SELFPAY ==
[2022-02-24 14:24] VITALS: BP 152/70; PULSE 71; RESP 16; TEMP 36.1; O2SAT 92
--- NOTE | 2022-02-24 14:59 | XR_ITS ---
WS: [id number] Portable AP upright chest, 02/24/2022 Clinical Data: post thora Comparison: Portable chest, 02/17/2022. Findings: There are bilateral pleural effusions with more effusion on the left than the right. The am ount of effusion is increased on the left compared to the prior study. The pulmonary vascularity brionna ins increased. The heart is probably enlarged. The aortic arch shows calcification. XR/XR chest 1V portable [id number] Impression: 1. No change in right basilar opacity. 2. Increase in left basilar opacity compared to prior x-ray. 3. Pulmonary vascular congestion and cardiomegaly.
--- NOTE | 2022-02-24 15:46 | PM.OUTPTPROC ---
Outpatient Procedures Thoracentesis Consent signed and on chart: Yes Time Out Performed: Yes Procedure: therapeutic thoracentesis and diagnostic thoracentesis Location: Right Local anesthetic used: lidocaine 1% Bedside ultrasound used: yes, pleural effusion confirmed and location marked and yes, real-time guidance Preparation: sterile prep and drape and 10 blade used to make jose in skin Amount of fluid obtained (mL): 500 Fluid: bloody and sent to lab for analysis Post Procedure Exam: awake, alert, normal BP, normal HR and normal SpO2 Post-procedure chest x-ray ordered: Yes Estimated blood loss (mL): 5 Patient Tolerated Procedure: well and no complications Procedure Note: Pulmonary & Critical Care Medicine Procedure -real-time Ultrasound guided Thoracentesis Procedure: Ultrasound guided Thoracentesis Indication: Right Pleural effusion in patient with a left breast mass and suspicious metastatic lesions in lung Merchandise Flow Team Leader(s): Markell Khan MD Consent: Signed and placed in chart Anesthesia: 10 cc 1% lidocaine without epinephrine Description: CT chest reviewed and Pleural effusion was localized using ultrasound guidance and the appropriate site was marked accordingly. A time out was performed. My hands were washed immediately prior to the procedure. I wore a surgical cap, mask with protective eyewear, sterile gown and sterile gloves throughout the procedure. The patient was placed in appropriate position, area of interest was sterilized with chlorhexidine skin prep and draped in a sterile manner. 1% lidocaine was used to anesthesize the skin, subcutaneous tissue, superior aspect of the rib periosteum and parietal pleura. A finder needle was then introduced over the superior aspect of the rib to locate the pleural fluid; 5 cc hemorrhagic fluid was aspirated. A 10-blade scalpel was used to jose the skin at the insertion site. The Cpta-x-Fswhkpif needle was then introduced through the skin incision into the pleural space using negative aspiration pressure and the red colormetric indicator to confirm appropriate positioning of the needle. The thoracentesis catheter was then threaded without difficulty 500 CC hemorrhagic colored fluid was removed without difficulty. The catheter was then removed. No immediate complications were noted during the procedure. The fluid will be sent for studies. Estimated blood loss is 5 - 10 CC. Real-time Ultrasound guidance used: Yes EBL: 5-10 cc Complications: None PCXR: A post-procedure chest x-ray did not show pneumothorax.
[2022-02-24 17:17] LABS: Body Fluid WBC 0 /uL; Color, Body Fluid YELLOW; RBC, Body Fluid 0 10^3/uL
[2022-02-24 17:18] LABS: Apprearance, Body Fluid CLEAR
[2022-02-24 18:12] LABS: Albumin Body Fluid 2.1 g/dL; Fluid Alkaline Phos. 13 IU/L; LDH Body Fluid 133 U/L
[2022-02-24 18:13] LABS: Amylase Body Fluid 52 U/L; Cholesterol Body Fluid 47 mg/dL (0-200); Total Protein Pleural Fluid 3.5 g/dL; Triglycerides Body Fluid 12 mg/dL (0-150); Uric Acid Body Fluid 5 mg/dL
[2022-02-24 18:14] LABS: Cyto Order Verification No Order
[2022-03-03 13:22] LABS: Breast Profile ER,PR,HER2,Ki-6 See Report
== END 2022-02-24 15:45 | disposition home or self-care (01) ==
LOC: GILAB 14:12
PROVIDERS: PCP Nurse Practitioner; Visit Provider Internal Medicine Pulmonary Disease
PROC: (CPT 32554; principal; 2022-02-24 14:30)
DX: J90 Pleural effusion, not elsewhere classified (principal); R06.00 Dyspnea, unspecified; I50.32 Chronic diastolic (congestive) heart failure; N63.0 Unspecified lump in unspecified breast; R91.8 Other nonspecific abnormal finding of lung field
CPT/HCPCS: 32554; 71045; 80503; 82042; 82150; 82465; 82945; 83615; 83986; 84075; 84157; 84315; 84478; 84560; 87015; 87070; 87075; 87116; 87205; 87206; 87801; 88108; 88342; 88361; 88374; 89050; 99204

== ENCOUNTER 2022-03-09 15:38 | Oncology outpatient (recurring) (ONCR) | payer MEDICARE, SELFPAY | END 2022-04-06 23:59 | disposition home or self-care (01) | PROVIDERS: PCP Nurse Practitioner; Visit Provider Internal Medicine Hematology & Oncology | DX: C50.812 Malignant neoplasm of overlapping sites of left female breast (principal); Z17.0 Estrogen receptor positive status [ER+]; C78.02 Secondary malignant neoplasm of left lung; J91.0 Malignant pleural effusion; J98.11 Atelectasis; K74.60 Unspecified cirrhosis of liver; R16.1 Splenomegaly, not elsewhere classified; Z79.818 Long term (current) use of other agents affecting estrogen receptors and estrogen levels; Z79.891 Long term (current) use of opiate analgesic; R07.89 Other chest pain | CPT/HCPCS: 99204 ==

== ENCOUNTER 2022-06-03 12:52 | Emergency (ER) | payer MEDICARE, SELFPAY ==
[2022-06-03 13:01] VITALS: BP 132/61; PULSE 82; RESP 14; TEMP 36.4; O2SAT 91; BMI 22.6
--- NOTE | 2022-06-03 13:21 | XR_ITS ---
WS: [id number] Exam: XR chest 1V portable [id number] Date/Time of Exam: 06/03/2022 1:25 PM Reason For Exam: sob Comparison 02/24/2022. There is cardiac enlargement with pulmonary vascular congestion suggesting acute CHF. Prominent right -sided pleural effusion noted with small left-sided pleural effusion. Compressive atelectasis of the right middle and lower lobe. The mediastinum is not widened. No pneumothorax. Bony structures are int act. XR/XR chest 1V portable [id number] IMPRESSION: 1. Findings suggest acute congestive heart failure with pulmonary vascular davon estion and bilateral pleural effusions. Compressive atelectasis of the middle a nd lower lobes the right lung.
--- NOTE | 2022-06-03 13:22 | W.ED.CHESTPA ---
HPI - Chest Pain General: Chief Complaint: Chest Pain Stated Complaint: EXTREME CANCER PAIN Time Seen by Provider: 06/03/22 12:54 History of Present Illness: 82-year-old female patient with a history of metastatic lung cancer in with uncontrolled pain and shortness of breath. The patient has been having increasing issues with pain control. She has breast cancer that is metastatic to the bone she has had a pleural effusion as well. The daughter who accompanies her is at a loss what to do. MD complaint: chest heaviness and chest discomfort Review of Systems General: Reports: 10 or more systems reviewed and unremarkable except in HPI and below and Other (Review of systems was obtained and is notable for weight loss, uncontrolled) PFSH ED PFSH: Medical History Acute pain of right hip Anemia Anxiety Arthralgia of knee, right Bilateral low back pain with bilateral sciatica Bilateral lower extremity edema Cellulitis of right lower leg Chronic kidney disease (CKD) Congestive heart failure with left ventricular diastolic dysfunction Encounter for long-term use of opiate analgesic Essential hypertension, benign Fall at home Fall in home Generalized weakness GERD (gastroesophageal reflux disease) Hypomagnesemia Hypothyroid 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 radiculopathy due to degenerative joint disease of spine Medication management Mixed hyperlipidemia Muscle spasm Osteoarthritis of right knee Recurrent UTI Urinary incontinence Venous insufficiency of both lower extremities Vitamin D deficiency Surgical History History of laparoscopic appendectomy Hx of abdominal hysterectomy Hx of cholecystectomy Family History Mother CAD (coronary artery disease) Father Stroke Brother CAD (coronary artery disease) Cancer Sister CAD (coronary artery disease) Cancer Social History Smoking and tobacco status: never smoked Alcohol intake: never Household members: spouse Marital status: Current occupational status: retired History of recent travel: No Physical Exam Narrative: EXAM NARRATIVE: Chronically ill-appearing elderly female in mild respiratory distress HENMT: OTHER: No scleral icterus or conjunctival injection Resp: OTHER: Diminished at the bases bilaterally poor effort and exhalation Cardio: OTHER: Distant heart sounds but regular rate and rhythm Extremity: OTHER: No pedal edema Skin: OTHER: Skin is warm and dry. Course Vital Signs: Vital signs: Vital Signs Temperature 97.6 F 06/03/22 13:01 Pulse Rate 82 06/03/22 13:01 Respiratory Rate 14 06/03/22 14:43 Blood Pressure 132/61 06/03/22 13:01 Pulse Oximetry 96 06/03/22 14:43 Oxygen Delivery Me thod 06/03/22 13:01 MDM - Chest Pain Medical Decision Making 82-year-old female with metastatic breast cancer and history of pleural effusions. I will check an x-ray and we will try to get her pain under control her pain is the chief complaint for which she presents today. The family and patient guarded need of big work-up but rather they would like some options including to discuss better pain control and even hospice care. The patient does have bilateral pleural effusions there moderate in size but I did not feel like draining them would help her significantly at this point. The patient was given some Toradol and Dilaudid which helped her significantly. She was able to rest easily while she was here we did have a hospice goodwill representative, have a discussion and I led discussion regarding hospice and goals of care as well. I think they are leaning that way but ultimately they want the input of her and they have been for 63 years they have hospices number and are can go home and have a family meeting and hopefully then call hospice. In the meantime we will start fentanyl patch to try to help control her discomfort a little bit better. Lab Data Radiology Impressions Chest X-Ray 06/03/22 13:21 IMPRESSION: 1. Findings suggest acute congestive heart failure with pulmonary vascular congestion and bilateral pleural effusions. Compressive atelectasis of the middle and lower lobes the right lung. Discharge Plan Discharge Patient Disposition: Home Clinical Impression: Metastatic breast cancer, Pulmonary nodules/lesions, multiple, Intractable pain Condition: Stable Prescriptions: No Action (DME) light weight wheelchair See Rx Instructions .Route .MEDSUPPLY Qty: 1 0RF Rx Instructions: As directed anastrozole [Arimidex] 1 mg tablet 1 mg PO DAILY Qty: 30 0RF torsemide 20 mg tablet 20 mg PO QAM Qty: 90 2RF triamterene-hydrochlorothiazid 37.5-25 mg tablet 1 tab PO BEDTIME Qty: 90 2RF levofloxacin 500 mg tablet 500 mg PO Q24H 7 Days Qty: 7 0RF tobramycin 0.3 % drops 1 drp ophthalmic (eye) TID 7 Days Qty: 5 0RF oxycodone-acetaminophen [Percocet] 5-325 mg tablet 1 tab PO .Q4-6h PRN (Reason: pain) 30 Days Qty: 120 0RF multivitamin Tablet 1 tab PO QAM sennosides-docusate sodium [Senna-S] 8.6-50 mg Tablet 1 tab PO BID acetaminophen [Tylenol Ex Str Rapid Release] 500 mg Tablet 500 mg PO DAILY@02 ascorbic acid (vitamin C) [Vitamin C] 500 mg Tablet 500 mg PO DAILY PRN (Reason: UNKNOWN) omeprazole 40 mg capsule,delayed release(DR/EC) 40 mg PO QAM alprazolam 0.5 mg tablet 0.25 mg PO BID potassium chloride 20 mEq tablet,ER particles/crystals 20 meq PO QAM levothyroxine 50 mcg tablet 50 mcg PO QAM simvastatin 20 mg tablet 20 mg PO BEDTIME Mag 64 64 mg tablet,delayed release (DR/EC) 64 mg PO BID Discharge Orders: Discharge ED (Routine); Ordered 06/03/22 Ordered By: Dusty Etienne Referrals: Farideh Pollack FNP [Primary Care Provider] - Patient Instructions: Opioid Safety, Pain Management Activity Restrictions/Additional Instructions: 1. Put fentanyl patch on tonight and use other prescription medication for breakthrough. Call hospice if that is what they so desire otherwise follow-up with primary care and/or oncology at first of next week. Coding Level of Care Code ED Office Services Coordinator for Rafael Kingston
[2022-06-03 14:37] VITALS: RESP 14
[2022-06-03 14:43] VITALS: RESP 14; O2SAT 96
[2022-06-03] MEDS: ketorolac 30 mg/mL INJ 15 MG IVP (14:43)
[2022-06-03] MEDS: HYDROmorphone 1 mg/mL INJ 1 mL 0.5 MG IVP (14:43)
--- NOTE | 2022-06-03 16:07 | DCPLANNER ---
optical store manager was asked to speak with patient and her about hospice care. Patients daughter stated that she had questions about hospice care. Family would like for counter caser to call [facility] and have someone come to the ER and speak with patient and family about hospice care. optical store manager called [facility], and was told that someone would come to the ER and speak with family. optical store manager was told that hospice nurse spoke with family. Hospice nurse told counter caser that she answered all of the questions that the family had, family needs to speak with the rest of the family before making a decision. Hospice gave family the phone number to hospice and if family decided that they would like services before next week that someone could come this weekend and sign patient up for services.
== END 2022-06-03 16:24 | disposition home or self-care (01) ==
PROVIDERS: Emergency Provider Family Medicine; PCP Nurse Practitioner
DX: J98.4 Other disorders of lung (principal); C79.81 Secondary malignant neoplasm of breast; C79.51 Secondary malignant neoplasm of bone; R52 Pain, unspecified; I13.0 Hypertensive heart and chronic kidney disease with heart failure and stage 1 through stage 4 chronic kidney disease, or unspecified chronic kidney disease; N18.9 Chronic kidney disease, unspecified; I50.9 Heart failure, unspecified; E78.2 Mixed hyperlipidemia; Z85.118 Personal history of other malignant neoplasm of bronchus and lung
CPT/HCPCS: 71045; 96374; 96375; 99284; J1170; J1885